=== PATIENT | female | born 1970 | race Caucasian/White ===

== ENCOUNTER 2021-07-08 17:33 | Emergency (ER) | payer BC ==
[~2021-07-08] VITALS: Ht 170.2 cm; Wt 60.8 kg
[2021-07-08 17:33] VITALS: BP_SYST 156
[2021-07-08] MEDS ORDERED: cloNIDine HCL 0.1 MG TABLET PO ONE ×2 (18:00→18:45)
[2021-07-08 18:08] LABS: BASOPHILS % (AUTO) 0.6 % (0.0-2.0); EOSINOPHILS % (AUTO) 0.8 % (0.0-4.0); HEMOGLOBIN 12.9 g/dL (12.0-16.0); LYMPHOCYTES # (AUTO) 0.8 K/uL (1.0-5.5); LYMPHOCYTES % (AUTO) 30.3 % (20.5-51.5); MEAN CORPUSCULAR HEMOGLOBIN 34 pg (27-31); MEAN CORPUSCULAR HGB CONC 35 % (32-36); MEAN CORPUSCULAR VOLUME 98 fL (79.0-98.0); MONOCYTES # (AUTO) 0.5 K/uL (0.0-1.0); NEUTROPHILS # (AUTO) 1.4 K/uL (1.8-7.7); NEUTROPHILS % (AUTO) 51.3 % (40.0-70.0); PLATELET COUNT (AUTO) 84 K/uL (130-430); RED BLOOD CELL COUNT(AUTO) 3.78 MIL/uL (4.2-6.2); WHITE BLOOD COUNT (AUTO) 2.8 K/uL (4.8-10.8)
[2021-07-08 18:27] LABS: CALCIUM 9.7 mg/dL (8.4-11.0); CREATININE 0.73 mg/dL (0.55-1.30); POTASSIUM 3.4 mmol/L (3.5-5.1)
[2021-07-08 18:32] LABS: ALBUMIN 4.2 g/dL (3.4-4.8)
[2021-07-08 18:45] LABS: PROTHROMBIN TIME 10.3 SECS (9.5-12.5)
[2021-07-08] MEDS ORDERED: HYDROcodone/ACETAMIN 10-325 MG TAB PO ONE (19:00)
[2021-07-08 19:32] VITALS: BP_SYST 120
== END 2021-07-08 19:32 | disposition home or self-care (01) ==
LOC: SED 17:33
DX: R04.0 Epistaxis (principal); I10 Essential (primary) hypertension
CPT/HCPCS: 36415; 80053; 85025; 85610-TC; 85730-TC; 99285